=== PATIENT | female | born 1950 | race Caucasian/White ===

== ENCOUNTER → 2020-01-10 | Outpatient (CLI) | payer MEDICARE, OTHER ==
[~2020-01-10] MED LIST: MELO7.5 PO; OXYACE5T PO; PARO20 PO; PROM25 PO; SIMV10 PO
== END | disposition home or self-care (01) ==
LOC: PLD 13:55 → LAB SHORT 13:55
DX: L72.0 Epidermal cyst (principal)
CPT/HCPCS: 88305

== ENCOUNTER → 2021-01-30 | Outpatient (CLI) | payer MEDICARE, OTHER | LOC: LAB 11:46 → LAB SHORT 11:46 | DX: D48.5 Neoplasm of uncertain behavior of skin (principal); L30.8 Other specified dermatitis; R23.4 Changes in skin texture; D71 Functional disorders of polymorphonuclear neutrophils; Z91.040 Latex allergy status | CPT/HCPCS: 88305; 88312; 88313 ==

== ENCOUNTER 2022-04-20 18:27 | Emergency (ER) | payer MEDICARE ==
[~2022-04-20] VITALS: Ht 167.6 cm; Wt 106.6 kg
[2022-04-20] MEDS ORDERED: ONDA4ODT MM (22:51)
[2022-04-20] MEDS ORDERED: Percocet 5-3251 EACH PO (22:51)
== END 2022-04-20 23:12 | disposition home or self-care (01) ==
LOC: ER 18:27
DX: S42.211A Unspecified displaced fracture of surgical neck of right humerus, initial encounter for closed fracture (principal); S42.251A Displaced fracture of greater tuberosity of right humerus, initial encounter for closed fracture; W01.0XXA Fall on same level from slipping, tripping and stumbling without subsequent striking against object, initial encounter; Z91.040 Latex allergy status; Z79.899 Other long term (current) drug therapy
CPT/HCPCS: 73030; 73060; A9270

== ENCOUNTER → 2022-09-26 | Outpatient (CLI) | payer MEDICARE ==
[~2022-09-26] MED LIST changes: +ONDA4ODT MM; +Percocet 5-3251 EACH PO
== END | disposition home or self-care (01) ==
LOC: LAB 10:35 → LAB SHORT 10:35
DX: L98.9 Disorder of the skin and subcutaneous tissue, unspecified (principal)
CPT/HCPCS: 87798

== ENCOUNTER → 2023-12-22 | Outpatient (CLI) | payer MEDICARE | LOC: LAB SHORT 16:07 → LAB 16:07 | DX: N39.0 Urinary tract infection, site not specified (principal) | CPT/HCPCS: 87086 ==